=== PATIENT | male | born 1950 | race Caucasian/White ===

== ENCOUNTER 2018-07-09 07:37 | Day surgery (SDC) | payer MEDICARE, MEDICAID ==
[~2018-07-09] VITALS: Ht 175.3 cm; Wt 114.7 kg
[2018-07-09] VITALS (10 sets, daily range): BP systolic 100–150; BP diastolic 63–81; PULSE 37–47
[~2018-07-09 07:37] MED LIST: ASPIRIN 32325 MG/TAB PO; ASPIRIN 81M81 MG/TA2 PO; LEVOXYL0.2 MG PO; MAGNESIUM250 M1 PO; NITROSTAT0.4 MG/TAB SL; NORCO 325 MG-7.1 TAB PO; PLAVIX 75MG TAB75 MG PO; POTASSIUM GLUC595 MG PO; PRILOSEC 20MG20 MG PO; REPREXAIN PO; VICOPROFEN 7.51 TAB PO
[2018-07-09] MEDS ORDERED: SENNA8.6 MG PO (08:54)
[2018-07-09] MEDS ORDERED: ASPIRIN 32325 MG/TAB PO (08:55)
[2018-07-09] MEDS ORDERED: PROTONIX 40MG T40 MG PO (08:56)
[2018-07-09] MEDS ORDERED: VICOPROFEN 7.51 TAB PO (08:56)
[2018-07-09] MEDS ORDERED: HYDRODIURIL50 MG PO (08:57)
[2018-07-09] MEDS ORDERED: NATURAL POTASS595 MG (08:58)
[2018-07-09] MEDS ORDERED: ZANTAC 300300 MG PO (08:59)
[2018-07-09] MEDS ORDERED: INDERAL 20MG20 MG PO (08:59)
[2018-07-09 09:00] LABS: HEMATOCRIT 41.8 % (42.0-52.0); MEAN CELL VOLUME 90 fl (80.0-100.0); MEAN CORPUSCULAR HEMOGLOBIN 30 pg (27.0-31.0); MEAN CORPUSCULAR HGB CONC 34 g/dl (33.0-37.0); MEAN PLATELET VOLUME 11.9 fl (7.4-10.4); PLATELET COUNT 170 K/mm3 (130-400); RED BLOOD COUNT 4.66 M/mm3 (4.20-5.60); REDCELL DISTRIBUTION WIDTH-CV 13.4 % (11.5-14.5)
[2018-07-09] MEDS ORDERED: FLONASEALLERGY NS (09:00)
[2018-07-09] MEDS ORDERED: ROBAXIN 50500 MG/TAB PO (09:01)
[2018-07-09] MEDS ORDERED: RESTORIL 1515 MG/CAP PO (09:01)
[2018-07-09] MEDS ORDERED: BENEFIBER (09:02)
[2018-07-09 09:07] LABS: CALCIUM 8.9 mg/dL (8.4-10.2); CREATININE, serum 0.8 mg/dL (0.66-1.25); INR 1.1 (0.8-3.0); POTASSIUM 3.5 mmol/L (3.4-5.0); PROTHROMBIN TIME 12.4 SECONDS (9.7-12.8)
[2018-07-09] MEDS ORDERED: INDERAL 10MG10 MG PO (11:33)
== END 2018-07-09 15:30 | disposition home or self-care (01) ==
LOC: COL.CAR 07:37 → ICU 11:14 → COL.CAR 15:30
PROVIDERS: Internal Medicine Cardiovascular Disease
DX: I25.10 Atherosclerotic heart disease of native coronary artery without angina pectoris (principal); R94.39 Abnormal result of other cardiovascular function study; I35.1 Nonrheumatic aortic (valve) insufficiency; I10 Essential (primary) hypertension; Z88.2 Allergy status to sulfonamides; Z88.0 Allergy status to penicillin; Z88.8 Allergy status to other drugs, medicaments and biological substances; Z79.82 Long term (current) use of aspirin; Z79.02 Long term (current) use of antithrombotics/antiplatelets; Z79.51 Long term (current) use of inhaled steroids; Z82.61 Family history of arthritis; Z82.5 Family history of asthma and other chronic lower respiratory diseases; Z82.49 Family history of ischemic heart disease and other diseases of the circulatory system
CPT/HCPCS: C1769; C1887; J0153; J0583; J1644; J2250; J3010; Q9967